=== PATIENT | male | born 1970 | race Caucasian/White ===

== ENCOUNTER 2017-04-29 17:16 | Emergency (ER) | payer OTHER ==
[2017-04-29 17:20] VITALS: BP 144/88; PULSE 64; TEMP 98.6; BMI 31.4
[2017-04-29] MEDS ORDERED: IBUPROFEN 400 MG TABLET (FP) PO ONE ×2 (19:59→20:13)
[2017-04-29] MEDS ORDERED: METOCLOPRAMIDE HCL 10 MG TABLET (FP) PO ONE ×2 (19:59→20:14)
--- NOTE | 2017-04-29 19:59 | PDOC ---
History of Present Illness - General History Source: Patient Exam Limitations: No Limitations - History of Present Illness Initial Comments: 04/29/17 20:08 The patient is a 46 year old male with significant past medical history hypertension (currently on no medications) who presents to the ED for 2 days of headache. Patient describes his headache as a pressure-like sensation at the frontal aspect with no radiation and associated dizziness. States he had similar symptoms last week that lasted for 2 days that resolved on its own for a few days and returned 2 days ago. Patient reports taking motrin and tylenol with somewhat relief. Denies diaphoresis, SOB, chest pain, palpitations, jaw pain, shoulder pain, arm pain, leg swelling, nausea, or vomiting. Denies visual changes. Patient states he has not seen by a doctor in about 1 year and has a history of hypertension, which he use to take medications for in the past, but is no longer taking any medications. The patient denies fever, chills, cough, abdominal pain, and diarrhea. Allergies: NKDA Social History: Occasional tobacco and etoh Past Surgical History: None reported PCP: Dr. Lacie Kennedy <Ramya Anaya - Last Filed: 04/29/17 20:07> - General History Source: Patient <KentonTiago ospina - Last Filed: 04/30/17 19:25> - General Chief Complaint: Lightheaded Stated Complaint: HEADACHE, FATIGUE Time Seen by Provider: 04/29/17 19:55 Past History <Ramya Anaya - Last Filed: 04/29/17 20:07> - Past Medical History Other medical history: NONE - Immunization History Immunization Up to Date: Yes - Psycho/Social/Smoking Cessation Hx Anxiety: No Suicidal Ideation: No Smoking Status: Yes Smoking History: Never smoked Number of Cigarettes Smoked Daily: 1 Hx Alcohol Use: Yes (SOCIAL) Drug/Substance Use Hx: No Substance Use Type: None <Tiago Garcia - Last Filed: 04/30/17 19:25> - Past Medical History Allergies/Adverse Reactions: Allergies Allergy/AdvReac Type Severity Reaction Status Date / Time No Known Allergies Allergy Verified 04/29/17 17:20 Home Medications: Ambulatory Orders Acetaminophen [Tylenol -] 650 mg PO Q6H PRN 04/29/17 Review of Systems - Review of Systems Able to Perform ROS?: Yes Comments:: 04/29/17 20:08 CONSTITUTIONAL: Absent: fever, no chills, no fatigue EYES: Absent: visual changes ENT: Absent: ear pain, no sore throat CARDIOVASCULAR: Absent: chest pain, no palpitations RESPIRATORY: Absent: cough, no SOB GI: Absent: abdominal pain, no nausea, no vomiting, no constipation, no diarrhea GENITOURINARY: Absent: dysuria, no frequency, no hematuria MUSCULOSKELETAL: Absent: back pain, no arthralgia, no myalgia SKIN: Absent: rash NEURO: +frontal pressure-like headache, dizziness <Ramya Anaya - Last Filed: 04/29/17 20:07> *Physical Exam - Vital Signs Last Vital Signs Temp Pulse Resp BP Pulse Ox 98.6 F 64 20 144/88 99 04/29/17 17:17 04/29/17 17:17 04/29/17 17:17 04/29/17 17:17 04/29/17 17:17 - Physical Exam Comments: 04/29/17 20:08 GENERAL: Well-appearing, well-nourished. No apparent distress. HEENT: Normocephalic, atraumatic. PERRLA, EOMI. Sclera are non-icteric. Moist mucous membranes. CARDIOVASCULAR: Regular rate and rhythm. No murmurs, rubs, or gallops. PULMONARY: Clear to auscultation bilaterally. ABDOMEN: Soft, non-distended, non-tender. EXTREMITIES: Normal ROM in all four extremities. No gross deformities. SKIN: Warm, dry. No rash NEUROLOGICAL: No focal neurological deficits. <DottyjoanRamya - Last Filed: 04/29/17 20:07> - Vital Signs Last Vital Signs Temp Pulse Resp BP Pulse Ox 98.6 F 64 20 144/88 99 04/29/17 17:17 04/29/17 17:17 04/29/17 17:17 04/29/17 17:17 04/29/17 17:17 <Tiago Garcia - Last Filed: 04/30/17 19:25> Medical Decision Making - Medical Decision Making 04/30/17 19:25 Dr. Garcia: The scribe's documentation has been prepared under my direction and personally reviewed by me in its entirery. I confirm that the note above accurately reflects all work, treatment, procedures, and medical decision making performed by me. <Tiago Garcia - Last Filed: 04/30/17 19:25> *DC/Admit/Observation/Transfer - Attestations Scribe Attestion: 04/29/17 20:08 Documentation prepared by Ramya Anaya, acting as medical transcriptionist for Tiago Garcia DO. <Ramya Anaya - Last Filed: 04/29/17 20:07> - Discharge Dispostion Admit: No <Tiago Garcia - Last Filed: 04/30/17 19:25> Diagnosis at time of Disposition: Headache - Referrals Referrals: Lacie Scott MD [Primary Care Provider] - - Patient Instructions Printed Discharge Instructions: DI for Headache Additional Instructions: Please follow up with your doctor as soon as possible to verify if you need to continue taking medications on a chronic basis Print Language: IRAQI
== END 2017-04-29 22:04 | disposition home or self-care (01) ==
LOC: JER 17:16
DX: R51 Headache (principal); I10 Essential (primary) hypertension
CPT/HCPCS: 70450-TC; 99282-25

== ENCOUNTER 2018-05-12 05:13 | Emergency (ER) | payer OTHER ==
[2018-05-12 06:00] VITALS: BP 143/94; PULSE 68; TEMP 98.4; BMI 30.7
[2018-05-12] MEDS ORDERED: SODIUM CHLORIDE 1,000 ML IV STA (06:15)
[2018-05-12] MEDS ORDERED: FAMOTIDINE 20 MG/50 ML IVPB 20 MG/50 ML MG IVPB ONE ×2 (06:15→07:02)
[2018-05-12] MEDS ORDERED: MAG HYDROX/AL HYDROX/SIMETH 30 ML UNIT-DOSE CUP PO ONE (06:16)
[2018-05-12 06:40] LABS: BASO % 0.7 % (0-2.0); EOS % 1.2 % (0-4.5); HEMOGLOBIN 15.8 GM/dL (11.7-16.9); LYMPH % 23.1 % (8-40); MCH 32.2 pg (25.7-33.7); MCHC 34.4 g/dl (32.0-35.9); MEAN CELL VOLUME 93.6 fl (80-96); MEAN PLT VOLUME 9.7 fl (7.5-11.1); MONO % 10.8 % (3.8-10.2); NEUT % 64.2 % (42.8-82.8); PLATELET COUNT 163 K/MM3 (134-434); RBC 4.91 M/mm3 (4.00-5.60); RDW 13.4 % (11.9-15.9); WHITE BLOOD COUNT 5.2 K/mm3 (4.0-10.0)
--- NOTE | 2018-05-12 06:54 | PDOC ---
History of Present Illness - General Chief Complaint: Pain Stated Complaint: CHEST DISCOMFORT Time Seen by Provider: 05/12/18 06:31 History Source: Patient Exam Limitations: No Limitations - History of Present Illness Initial Comments: 05/12/18 06:56 47 YOM with h/o HTN presenting with intermittent burning epigastric pain, nausea x 3 days, worse tonight while sleeping. no cp or sob, dizziness or headache. no vomiting or diarrhea. +food precipitants, eats fatty and greasy meals. no fevers or chills. occasional use of ETOH and smoking, otherwise no drugs. no prolonged NSAID use. no travel or sick contacts. 05/12/18 07:13 Past History - Past Medical History Allergies/Adverse Reactions: Allergies Allergy/AdvReac Type Severity Reaction Status Date / Time No Known Allergies Allergy Verified 05/12/18 05:55 Home Medications: Ambulatory Orders Ibuprofen 800 mg PO TID PRN #20 tablet 03/16/18 Leg Brace [Knee Brace] 1 each MC DAILY #1 each 03/16/18 COPD: No HTN: Yes Psychiatric Problems: Yes (Anxiety) - Immunization History Immunization Up to Date: Yes - Suicide/Smoking/Psychosocial Hx Smoking Status: Yes Smoking History: Current some day smoker Have you smoked in the past 12 months: Yes Number of Cigarettes Smoked Daily: 2 Information on smoking cessation initiated: No Hx Alcohol Use: No Drug/Substance Use Hx: No Substance Use Type: None Review of Systems - Review of Systems Able to Perform ROS?: Yes Comments:: 05/12/18 07:12 Constitutional: no fevers or chills. HEENT: no headache or dizziness. CVS: no cp or syncope. Resp: no sob. Abdomen: +abdominal pain and nausea; no vomiting, no diarrhea MUSCULOSKELETAL: No joint pain and swelling. No neck or back pain. SKIN: no redness or skin changes, no discharge, no rash. Hematologic: no easy bruising/bleeding. NEUROLOGIC: No headache, dizziness, LOC or altered mental status. No weakness, numbness or tingling. All other systems reviewed and negative, or as documented in HPI. *Physical Exam - Vital Signs Last Vital Signs Temp Pulse Resp BP Pulse Ox 98.4 F 68 20 143/94 97 05/12/18 05:56 05/12/18 05:56 05/12/18 05:56 05/12/18 05:56 05/12/18 05:56 - Physical Exam Comments: 05/12/18 07:11 General: Well appearing, awake and alert, NAD. HEENT: NCAT, PERRL, EOMI, clear conjunctiva, anicteric, moist mucus membranes, clear oropharynx, no oral lesions.. Neck: neck supple, FROM Resp: CTAB, normal and even respirations, no respiratory distress CVS: RRR, no murmurs, 2+ peripheral pulses throughout, no peripheral edema Abdomen: soft, +epigastric TTP, no rebound or guarding. no lower quad tenderness , no miller's Back: nontender, normal inspection and ROM MSK: no edema, CRAIN x4, ROM intact. No clubbing or cyanosis. normal bulk and tone. Neuro: alert, oriented appropriately; no focal neurologic deficits. Skin: warm and well perfused, cap refill <2 sec, normal color ED Treatment Course - LABORATORY CBC & Chemistry Diagram: 05/12/18 06:30 05/12/18 06:30 - ADDITIONAL ORDERS Additional order review: 05/12/18 06:30 RBC 4.91 MCV 93.6 MCHC 34.4 RDW 13.4 MPV 9.7 Neutrophils % 64.2 Lymphocytes % 23.1 D Monocytes % 10.8 H Eosinophils % 1.2 Basophils % 0.7 Medical Decision Making - Medical Decision Making 05/12/18 07:12 47 YOM with epigastric abdominal pain. DDx. pancreatitis, hepatitis, GERD, gastritis, dyspepsia, PUD, ACS, angina. doubt biliary pathology as no RUQ tenderness. also doubt ACS as no cp or sob or significant risk factors. VS wnl, no fever. labs wnl, reassuring, normal lytes, LFTs and lipase. EKG normal sinus rhythm, no interval abnormalities, narrow QRS, ST and T wave segments and morphology normal. Nonspecific T wave abnormalities given GI cocktail, pepcid. already feeling improved. abdomen nonperitoneal, no lower quad or RUQ tenderness instructions on diet changes, avoid triggers such as fatty foods or greasy, spicy or hot coffee. no indication for RUQ sono, as doubt biliary pathology at this time and x 3 days of sx. Pt to be discharged in stable condition. Patient and family made aware of impression and plan, return precautions discussed (including but not limited to worsening pain or symptoms), fevers, or signs of infection, chest pain, respiratory distress, inability to tolerate oral intake, dehydration, syncope, or neurologic changes). Follow up with PMD and GI specialist as recommended, follow up information provided, take medications as instructed for duration of time. continue with supportive care, avoid triggers and precipitants. All questions answered to patient's satisfaction and expressed understanding and comfort with this. 05/12/18 07:14 05/12/18 07:15 *DC/Admit/Observation/Transfer Diagnosis at time of Disposition: Abdominal pain - Discharge Dispostion Disposition: HOME Condition at time of disposition: Improved Decision to Admit order: No - Referrals Referrals: Lacie Scott MD [Primary Care Provider] - Jarod Mendoza MD [Staff Physician] - - Patient Instructions Printed Discharge Instructions: DI for Abdominal Pain-Adult, GERD Diet, DI for Gastroesophageal Reflux Disease (GERD) Additional Instructions: follow up with primary doctor and business control manager, referrals given, for your abdominal pain may take pepcid daily and maalox or mylanta with meals to avoid acid reflux and burning symptoms. avoid triggers such as fatty or greasy foods, spicy or hot coffee. you most likely have acid reflux, you should see business control manager for further management and testing. return if worsening symptoms or signs of infection, dehydration Speedy un seguimiento con el mdico primario y el gastroenterlogo, referencias dadas, para farrell dolor abdominal puede vandana pepcid diariamente y maalox o mylanta con las comidas para evitar el reflujo cido y los sntomas de ardor. evite los desencadenantes, trisha los alimentos grasos o grasosos, el caf picante o caliente. es muy probable que tenga reflujo cido, Debera sharon a un gastroenterlogo para katia mayor administracin y pruebas. regresar si empeoran los sntomas o signos de infeccin, deshidratacin Print Language: PRYDEINIG - Post Discharge Activity
[2018-05-12] MEDS ORDERED: MAG HYDROX/AL HYDROX/SIMETH 30 ML UNIT-DOSE CUP ONE (07:02)
[2018-05-12 07:04] LABS: ALBUMIN 4.1 g/dl (3.4-5.0); ANION GAP 7 MMOL/L (8-16); BILIRUBIN,TOTAL 1.3 mg/dL (0.2-1.0); BLOOD UREA NITROGEN 17 mg/dL (7-18); CHLORIDE 104 mmol/L (98-107); CO2 32 mmol/L (21-32); CREATININE 0.8 mg/dL (0.7-1.3); GLUCOSE,RANDOM 97 mg/dL (74-106); SGOT/AST 49 U/L (15-37); SGPT/ALT 99 U/L (12-78); SODIUM 143 mmol/L (136-145); TOT PROT 7.9 g/dl (6.4-8.2)
[2018-05-12 07:05] LABS: ALK PHOS 79 U/L (45-117)
[2018-05-12 07:07] LABS: LIPASE 226 U/L (73-393)
--- NOTE | 2018-05-12 11:31 | EKG ---
Test Reason : Blood Pressure : / mmHG Vent. Rate : 063 BPM Atrial Rate : 063 BPM P-R Int : 160 ms QRS Dur : 096 ms QT Int : 426 ms P-R-T Axes : 037 -09 009 degrees QTc Int : 435 ms NORMAL SINUS RHYTHM NORMAL ECG WHEN COMPARED WITH ECG OF 27-JUN-2013 13:45, VENT. RATE HAS DECREASED BY 59 BPM INVERTED T WAVES HAVE REPLACED NONSPECIFIC T WAVE ABNORMALITY IN INFERIOR LEADS Confirmed by SUPRIYA BESS, LEEANN ([id number]) on 05/12/2018 11:31:23 AM Referred By: Confirmed By:LEEANN EPPS MD
== END 2018-05-12 07:32 | disposition home or self-care (01) ==
LOC: JER 05:13
PROC: 3E033GC Introduction of Other Therapeutic Substance into Peripheral Vein, Percutaneous Approach (ICD-10-PCS; principal; 2018-05-12)
DX: R10.13 Epigastric pain (principal); I10 Essential (primary) hypertension; F41.9 Anxiety disorder, unspecified
CPT/HCPCS: 36415; 80053; 83690; 85025; 93005; 93010; 99284-25; J7030

== ENCOUNTER 2023-09-19 12:46 | Emergency (ER) | payer OTHER ==
[2023-09-19 12:52] VITALS: BP 123/80; PULSE 70; RESP 18; TEMP 97.9; BMI 31.6
[2023-09-19] MEDS ORDERED: ACETAMINOPHEN 500 MG TABLET (FP) PO ONE (14:00)
[2023-09-19] MEDS ORDERED: IBUPROFEN 400 MG TABLET (FP) PO ONE ×2 (14:00→14:10)
[2023-09-19] MEDS ORDERED: ACETAMINOPHEN 500 MG TABLET (FP) ONE (14:11)
== END 2023-09-19 15:08 | disposition home or self-care (01) ==
LOC: JER 12:46
DX: S20.212A Contusion of left front wall of thorax, initial encounter (principal); W01.0XXA Fall on same level from slipping, tripping and stumbling without subsequent striking against object, initial encounter; Y92.9 Unspecified place or not applicable
CPT/HCPCS: 71101-TC-LT-FY; 99283-25

== ENCOUNTER 2025-03-13 18:59 | Emergency (ER) | payer OTHER ==
[2025-03-13 19:09] VITALS: BP 137/93; PULSE 98; RESP 18; TEMP 98.9; BMI 29.9
[2025-03-13] MEDS ORDERED: LIDOCAINE HCL 2% (50ML VIAL) INF ONE (21:19)
[2025-03-13] MEDS ORDERED: LIDOCAINE HCL 1%, 10 MG/ML (20ML VIAL) ONE (21:24)
[2025-03-13] MEDS ORDERED: DIPHTH,PERTUSS(ACELL),TET 0.5 ML DISP.SYRIN IM ONE (21:59)
[2025-03-13] MEDS ORDERED: DOXYCYCLINE HYCLATE 100 MG TABLET PO ONE (22:29)
[2025-03-13] MEDS: DIPHTH,PERTUSS(ACELL),TET 0.5 ML DISP.SYRIN IM ONE (22:35)
[2025-03-13] MEDS: IBUPROFEN 600 MG TABLET (FP) PO ONE (22:36)
[2025-03-13] MEDS: DOXYCYCLINE HYCLATE 100 MG CAPSULE PO ONE (22:36)
[2025-03-13] MEDS: LIDOCAINE HCL 1%, 10 MG/ML (50 mL VIAL) INF ONE (22:44)
== END 2025-03-13 22:46 | disposition home or self-care (01) ==
LOC: JERFT 18:59
PROC: 0HCGXZZ Extirpation of Matter from Left Hand Skin, External Approach (ICD-10-PCS; principal; 2025-03-13)
PROC: 3E0234Z Introduction of Serum, Toxoid and Vaccine into Muscle, Percutaneous Approach (ICD-10-PCS; 2025-03-13)
DX: S60.451A Superficial foreign body of left index finger, initial encounter (principal); Z23 Encounter for immunization; W45.8XXA Other foreign body or object entering through skin, initial encounter
CPT/HCPCS: 10120-25; 73140-TC-LT-FY; 90471; 90715; 99284-25